=== PATIENT | male | born 1980 | race Hispanic/Latino ===

== ENCOUNTER 2021-04-28 10:57 | Emergency (ER) | payer OTHER ==
[~2021-04-28] VITALS: Ht 182.9 cm; Wt 101.2 kg
[2021-04-28 11:57] LABS: BASOPHILS % (AUTO) 0.5 % (0.0-5.0); EOSINOPHILS % (AUTO) 0.4 % (0.0-8.0); HEMATOCRIT 41.1 % (42-54); LYMPHOCYTES % (AUTO) 13.5 % (21.0-51.0); MEAN CORPUSCULAR HEMOGLOBIN 30.7 pg (27.0-33.0); MEAN CORPUSCULAR HGB CONC 35.3 g/dL (32.0-36.0); MEAN CORPUSCULAR VOLUME 86.9 fL (79-99); MONOCYTES % (AUTO) 6.1 % (3.0-13.0); NEUTROPHILS % (AUTO) 78.9 % (40.0-77.0); PLATELET COUNT (AUTO) 194 K/uL (130-400); RED BLOOD CELL COUNT(AUTO) 4.73 MIL/uL (4.50-6.20); RED CELL DISTRIBUTION WIDTH 11.8 % (11.0-15.5); WHITE BLOOD COUNT (AUTO) 12.3 K/uL (4.8-10.8)
[2021-04-28 12:05] LABS: CREATININE 0.8 mg/dL (0.5-1.5); POTASSIUM 4.5 mmol/L (3.5-5.1)
[2021-04-28 12:10] LABS: ALBUMIN 3.6 g/dL (3.5-5.0); BILIRUBIN,TOTAL 0.8 mg/dL (0.2-1.0); TOTAL PROTEIN, SERUM 7.4 g/dL (6.0-8.3)
[2021-04-28] MEDS ORDERED: LIDOCAINE HCL MPF 1% 5ML VIAL ONE (12:22)
[2021-04-28] MEDS ORDERED: KETOROLAC 30MG VIAL (30MG/ML) IV ONE (13:00)
[2021-04-28] MEDS ORDERED: 0.9%NACL 1000ML 1,000 ML IV ONE (13:00)
[2021-04-28] MEDS ORDERED: CEFTRIAXONE 2GM VIAL IVPB SCH (13:00)
[2021-04-28] MEDS ORDERED: METF-444 PO (13:15)
[2021-04-28] MEDS ORDERED: SULF1TAB42 PO (13:15)
[2021-04-28] MEDS ORDERED: NAPR500T6 PO (13:15)
[2021-04-28] MEDS ORDERED: CEPH500B PO (13:15)
[2021-04-28 14:00] VITALS: BP 132/86
== END 2021-04-28 14:21 | disposition home or self-care (01) ==
LOC: EDH 10:57
DX: S89.92XA Unspecified injury of left lower leg, initial encounter (principal); E11.65 Type 2 diabetes mellitus with hyperglycemia; Z79.899 Other long term (current) drug therapy; Z79.84 Long term (current) use of oral hypoglycemic drugs; Z98.890 Other specified postprocedural states; X58.XXXA Exposure to other specified factors, initial encounter; Y93.89 Activity, other specified; Y92.89 Other specified places as the place of occurrence of the external cause; Y99.8 Other external cause status
CPT/HCPCS: 20610; 36415; 73562; 80053; 85025; 96361; 96374; 96375; 99284; J0696; J1885; J3490; J7030